=== PATIENT | male | born 1940 | race Caucasian/White ===

== ENCOUNTER 2020-04-05 08:25 | Inpatient (IN) ==
[2020-04-05] MEDS ORDERED: Ondansetron 4 MG/2 ML VIAL IVP ONE (08:35)
[2020-04-05 10:16] LABS: Basophils % 0.2 %; Eosinophils % 0.8 %; Red Cell Distribution Width 17.4 % (11.5-14.5)
[2020-04-05 10:17] LABS: Eosinophils # 0.1 K/mcL (0.0-0.6); Hematocrit 17.5 % (37.5-50.1); Immature Granulocytes % 0.4 % (0-4); Lymphocytes # 0.8 K/mcL (0.6-4.6); Lymphocytes % 8.2 %; Mean Corpuscular Hemoglobin 31.3 pg (28.0-33.3); Mean Corpuscular Volume 97.8 fL (83.0-100.0); Mean Platelet Volume 10.3 fL (9.4-12.4); Monocytes # 0.5 K/mcL (0.0-1.3); Monocytes % 4.7 %; Neutrophils # 8.7 K/mcL (1.6-8.9); Platelet Count 210 K/mcL (140-400); Red Blood Count 1.79 M/mcL (4.19-5.50); Segmented Neutrophils % 85.7 %; White Blood Count 10.1 K/mcL (4.3-11.1)
[2020-04-05 10:20] LABS: INR 2.8; Prothrombin Time 31.8 Seconds (9.4-12.1)
[2020-04-05] MEDS: 0.9 % Sodium Chloride 1,000 ML IVC SCH ×2 (10:25→16:45)
[2020-04-05 10:30] LABS: Hemoglobin 5.6 g/dL (12.9-16.9)
[2020-04-05 10:47] LABS: Alanine Aminotransferase 14 Units/L (7-52); Albumin 3.5 g/dL (3.5-5.7); Albumin/Globulin Ratio 1.5 (1.1-2.2); Alkaline Phosphatase 70 Units/L (34-104); Aspartate Amino Transferase 16 Units/L (13-39); BUN/Creatinine Ratio 23 (6-26); Bilirubin,Direct 0.1 mg/dL (0.0-0.2); Bilirubin,Indirect 0.2 mg/dL (0.0-1.0); Bilirubin,Total 0.3 mg/dL (0.3-1.0); Blood Urea Nitrogen 55 mg/dL (8-23); Calcium 8.7 mg/dL (8.6-10.3); Carbon Dioxide 24 mEq/L (23-29); Chloride 109 mEq/L (98-107); Globulin 2.3 g/dL (2.4-3.5); Glucose 147 mg/dL (70-105); Lipase 20 Units/L (11-82); Osmolality,Calculated 310 (280-300); Potassium 4.1 mEq/L (3.5-5.1); Sodium 141 mEq/L (136-145); Total Protein 5.8 g/dL (6.4-8.9); Troponin I < 0.03 ng/mL (< 0.04); eGFR For African Americans 33 (> 60); eGFR For Non-African Americans 27 (> 60)
[2020-04-05 11:00] LABS: Thyroid Stimulating Hormone 2.135 mcIU/mL (0.340-5.600)
[2020-04-05] MEDS ORDERED: *HR* Promethazine 25 MG/ML VIAL IVP PRN (11:11)
[2020-04-05] MEDS: Pantoprazole 40 MG VIAL IVP SCH ×2 (11:25→20:21)
[2020-04-05] MEDS ORDERED: 0.9 % Sodium Chloride 250 ML ONE ×2 (14:20→14:22)
[2020-04-05 14:47] LABS: INR 2.8; Prothrombin Time 31.5 Seconds (9.4-12.1)
[2020-04-05 18:50] LABS: Bilirubin,Urine Negative (Negative); Blood,Urine Negative (Negative); Clarity,Urine Clear (Clear); Color,Urine Yellow (Yellow); Glucose,Urine (UA) Normal (Normal); Ketones,Urine Negative (Negative); Leukocyte Esterase,Urine Negative (Negative); Mucus,Urine Few per lpf (None-Few); Nitrite,Urine Negative (Negative); Protein,Urine 30 mg/dL (Neg-Trace); RBC,Urine 0-3 per hpf (0-3); Squamous Epithelial Cell,Urine Few per hpf (None-Few); Urobilinogen,Urine Normal (Normal); WBC,Urine 0-3 per hpf (0-3)
[2020-04-05 18:55] LABS: Protein/Creatinine Ratio,Urine 0.44 mg/mg (0.00-0.20)
[2020-04-05 22:26] LABS: Hemoglobin 6.7 g/dL (12.9-16.9); Mean Corpuscular HGB Conc 31.9 g/dL (31.6-35.5); Mean Corpuscular Hemoglobin 29.6 pg (28.0-33.3); Mean Corpuscular Volume 92.9 fL (83.0-100.0); Mean Platelet Volume 10.2 fL (9.4-12.4); Platelet Count 185 K/mcL (140-400); Red Blood Count 2.26 M/mcL (4.19-5.50); Red Cell Distribution Width 16.8 % (11.5-14.5)
[2020-04-05 22:51] LABS: % Iron Saturation 41 % (20-55); Iron 99 mcg/dL (65-175); Transferrin 173 mg/dL (203-362)
[2020-04-05 23:09] LABS: Ferritin 43 ng/mL (20-250)
[2020-04-06] MEDS: 0.9 % Sodium Chloride 1,000 ML IVC SCH ×2 (04:01→18:05)
[2020-04-06] MEDS: Pantoprazole 40 MG VIAL IVP SCH ×2 (05:53→18:06)
[2020-04-06 07:09] LABS: Hematocrit 21.5 % (37.5-50.1); Hemoglobin 6.9 g/dL (12.9-16.9); Mean Corpuscular HGB Conc 32.1 g/dL (31.6-35.5); Mean Corpuscular Hemoglobin 29.9 pg (28.0-33.3); Mean Corpuscular Volume 93.1 fL (83.0-100.0); Mean Platelet Volume 10.2 fL (9.4-12.4); Platelet Count 190 K/mcL (140-400); Red Blood Count 2.31 M/mcL (4.19-5.50); Red Cell Distribution Width 17.2 % (11.5-14.5); White Blood Count 11.7 K/mcL (4.3-11.1)
[2020-04-06 07:17] LABS: INR 1.5
[2020-04-06 07:28] LABS: Calcium 8.2 mg/dL (8.6-10.3); Potassium 3.9 mEq/L (3.5-5.1)
[2020-04-06] MEDS ORDERED: 0.9 % Sodium Chloride 250 ML IVC SCH (07:45)
[2020-04-06] MEDS ORDERED: Lidocaine -MPF 2% 2 ML VIAL ONE (11:04)
[2020-04-06] MEDS ORDERED: *HR* Propofol 200 MG/20 ML VIAL IVP ONE ×2 (11:05→11:09)
[2020-04-06] MEDS: amLODIPine 5 MG TABLET PO SCH (12:57)
[2020-04-06] MEDS: carvediloL 6.25 MG TABLET PO SCH ×2 (12:58→16:27)
[2020-04-06] MEDS: calcitrioL 0.25 MCG CAPSULE PO SCH (12:58)
[2020-04-06 13:24] LABS: Bilirubin,Urine Negative (Negative); Blood,Urine Negative (Negative); Clarity,Urine Clear (Clear); Color,Urine Colorless (Yellow); Glucose,Urine (UA) Normal (Normal); Ketones,Urine Negative (Negative); Leukocyte Esterase,Urine Moderate (Negative); Nitrite,Urine Negative (Negative); Protein,Urine Trace mg/dL (Neg-Trace); Specific Gravity,Urine 1.015 (1.010-1.025); Squamous Epithelial Cell,Urine Few per hpf (None-Few); Urobilinogen,Urine Normal (Normal)
[2020-04-06 13:38] LABS: Hemoglobin 6.5 g/dL (12.9-16.9)
[2020-04-06 18:39] LABS: Hematocrit 22.7 % (37.5-50.1); Hemoglobin 7.2 g/dL (12.9-16.9)
[2020-04-06 22:17] LABS: Hematocrit 22.9 % (37.5-50.1); Hemoglobin 7.3 g/dL (12.9-16.9)
[2020-04-07 04:02] LABS: Basophils % 0.5 %; Eosinophils # 0.5 K/mcL (0.0-0.6); Eosinophils % 5.9 %; Hematocrit 23.5 % (37.5-50.1); Hemoglobin 7.2 g/dL (12.9-16.9); Immature Granulocytes % 0.3 % (0-4); Lymphocytes # 1.4 K/mcL (0.6-4.6); Lymphocytes % 18.1 %; Mean Corpuscular HGB Conc 30.6 g/dL (31.6-35.5); Mean Corpuscular Hemoglobin 29.6 pg (28.0-33.3); Mean Corpuscular Volume 96.7 fL (83.0-100.0); Mean Platelet Volume 9.9 fL (9.4-12.4); Monocytes # 0.6 K/mcL (0.0-1.3); Neutrophils # 5.3 K/mcL (1.6-8.9); Platelet Count 178 K/mcL (140-400); Red Blood Count 2.43 M/mcL (4.19-5.50); Red Cell Distribution Width 17.3 % (11.5-14.5); Segmented Neutrophils % 68.2 %; White Blood Count 7.8 K/mcL (4.3-11.1)
[2020-04-07 04:21] LABS: Calcium 7.9 mg/dL (8.6-10.3); Potassium 3.7 mEq/L (3.5-5.1)
[2020-04-07] MEDS: Pantoprazole 40 MG VIAL IVP SCH ×2 (05:49→18:11)
[2020-04-07] MEDS: amLODIPine 5 MG TABLET PO SCH (08:38)
[2020-04-07] MEDS: carvediloL 6.25 MG TABLET PO SCH ×2 (08:38→16:42)
[2020-04-08 04:54] LABS: Basophils % 0.5 %; Eosinophils # 0.5 K/mcL (0.0-0.6); Eosinophils % 5.9 %; Hematocrit 23.3 % (37.5-50.1); Hemoglobin 7.2 g/dL (12.9-16.9); Immature Granulocytes % 0.4 % (0-4); Lymphocytes # 1.5 K/mcL (0.6-4.6); Lymphocytes % 18.7 %; Mean Corpuscular HGB Conc 30.9 g/dL (31.6-35.5); Mean Corpuscular Hemoglobin 29.1 pg (28.0-33.3); Mean Corpuscular Volume 94.3 fL (83.0-100.0); Mean Platelet Volume 10.3 fL (9.4-12.4); Monocytes # 0.7 K/mcL (0.0-1.3); Monocytes % 8.9 %; Neutrophils # 5.1 K/mcL (1.6-8.9); Platelet Count 176 K/mcL (140-400); Red Blood Count 2.47 M/mcL (4.19-5.50); Red Cell Distribution Width 17.1 % (11.5-14.5); Segmented Neutrophils % 65.6 %; White Blood Count 7.8 K/mcL (4.3-11.1)
[2020-04-08 05:10] LABS: Calcium 7.8 mg/dL (8.6-10.3); Potassium 3.8 mEq/L (3.5-5.1)
[2020-04-08] MEDS: Pantoprazole 40 MG VIAL IVP SCH (05:31)
[2020-04-08] MEDS: carvediloL 6.25 MG TABLET PO SCH ×2 (07:42→11:47)
[2020-04-08] MEDS: amLODIPine 5 MG TABLET PO SCH (08:01)
[2020-04-08] MEDS: calcitrioL 0.25 MCG CAPSULE PO SCH (11:46)
[2020-04-08] MEDS ORDERED: Lidocaine -MPF 2% 2 ML VIAL ONE (13:12)
[2020-04-08] MEDS ORDERED: EPHEDrine 50 MG/ML VIAL ONE (14:03)
[2020-04-08] MEDS ORDERED: *HR* PHENYLEPHRINE 1,000 MCG/10 ML SYRINGE IVP ONE (14:04)
[2020-04-08 15:28] VITALS: BP 153/78
[2020-04-08] MEDS ORDERED: Warfarin perPT PO PRN (18:00)
== END 2020-04-08 18:11 | disposition home health service (06) | DRG 377 ==
LOC: EMEROOARM 08:25 → 3ANU 08:25 → SUATTDRO 11:45 → 3ANU 12:30
PROVIDERS: ADMIT Internal Medicine; ATTEND Family Medicine